=== PATIENT | female | born 1985 | race Caucasian/White ===

== ENCOUNTER 2017-10-01 23:45 | Emergency (ER) | payer BC ==
[2017-10-02] MEDS ORDERED: Acetaminophen/HYDROcodone 325-7.5 MG Tab PO ONE (00:10)
--- NOTE | 2017-10-02 00:16 | EDM.PDOC ---
ED HPI GENERAL MEDICAL PROBLEM - General Chief Complaint: Upper Extremity Injury/Pain Stated Complaint: LEFT HAND SWOLLEN AND PAINFUL Time Seen by Provider: 10/02/17 00:06 - History of Present Illness INITIAL COMMENTS - FREE TEXT/NARRATIVE: HISTORY AND PHYSICAL: History of present illness: The patient is a 32-year-old female who has a history of a bilateral tubal ligation and presents after slipping and falling and trying to grab on and not fall with her left hand and then putting it behind her and impacting her left hand. This event occurred approximately 12 hours ago and the patient tried ice and ibuprofen and is here for persistent pain. The patient is right-hand dominant and complains of pain mostly at the base of the thumb extending into the hand and the remainder of the hand feels tingly but she has been afraid to move it. She has no discrete pain in the other digits and she has no proximal wrist or scaphoid tenderness no proximal forearm elbow or shoulder discomfort. With these events the patient did not hit her head pass out or black out and has no head neck or back pain. Review of systems: As per history of present illness and below otherwise all systems reviewed and negative. Past medical history: As per history of present illness and as reviewed below otherwise noncontributory. Surgical history: As per history of present illness and as reviewed below otherwise noncontributory. Social history: No reported history of drug or alcohol abuse. Family history: As per history of present illness and as reviewed below otherwise noncontributory. Physical exam: General: Well developed well-nourished mildly overweight female who is nontoxic and vital signs are reviewed by me HEENT: Atraumatic, normocephalic, negative for conjunctival pallor or scleral icterus, mucous membranes moist, throat clear, neck supple, nontender, trachea midline. Lungs: Clear to auscultation, breath sounds equal bilaterally, chest nontender. Heart: S1S2, regular rate and rhythm no overt murmurs Abdomen: Soft, nondistended, nontender. NABS Pelvis: Deferred Genitourinary: Deferred. Rectal: Deferred. Extremities: Atraumatic with full range of motion of all extremities with the exception of the left hand. At the opponens area there is diffuse soft tissue swelling tenderness and purplish ecchymosis with a superficial abrasion. The patient has tenderness in the bony architecture of the first metacarpal extending into the thumb but the distal phalanx and nailbed of the thumb are intact and nontender. The remainder of the digits are nontender without defects or deformities or soft tissue injuries as is the remainder of the palmar and dorsal aspect of the hand. The scaphoid is without tenderness and the remainder of the wrist and proximal forearm are also nontender. The left elbow humerus shoulder and clavicle are also nontender and without defects or deformities. Neurovascular in the hand is intact. The legs are, negative for cords or calf pain. Neurovascular unremarkable. Neuro: Awake, alert, oriented. Cranial nerves II through XII unremarkable. Cerebellum unremarkable. Motor and sensory unremarkable throughout. Exam nonfocal. Diagnostics: X-ray left hand Therapeutics: [place] sling, Ortho-Glass splint was applied by nursing to mobilize the fifth metacarpal as well as the base of the thumb Impression: Fall with fracture of proximal fifth metacarpal left and thumb injury/opponens muscle contusion Definitive disposition and diagnosis as appropriate pending reevaluation and review of above. left hand Pain Score (Numeric/FACES): 7 - Related Data Allergies Allergy/AdvReac Type Severity Reaction Status Date / Time No Known Allergies Allergy Verified 10/02/17 00:06 Home Meds: Home Meds . [No Known Home Meds] 10/02/17 [History] Past Medical History - Past Health History Medical/Surgical History: Denies Medical/Surgical History Psychiatric History: Reports: Anxiety Social & Family History - Family History Family Medical History: Noncontributory - Tobacco Use Smoking Status *Q: Current Every Day Smoker Years of Tobacco use: 12 Packs/Tins Daily: 1 - Caffeine Use Caffeine Use: Reports: None - Recreational Drug Use Recreational Drug Use: No Review of Systems - Review of Systems Review Of Systems: ROS reveals no pertinent complaints other than HPI. ED EXAM, GENERAL - Physical Exam Exam: See Below (See dictation) Course - Vital Signs Last Recorded V/S: Last Vital Signs Temp 36.1 C 10/02/17 00:00 Pulse 89 10/02/17 00:00 Resp 18 10/02/17 00:00 BP 148/100 H 10/02/17 00:00 Pulse Ox 99 10/02/17 00:00 - Orders/Labs/Meds Orders: Active Orders 24 hr Category Date Time Status Hand Comp Min 3V Lt [CR] Stat Exams 10/02/17 00:11 Taken DME for Discharge [COMM] Stat Oth 10/02/17 00:51 Ordered Meds: Medications Discontinued Medications Generic Name Dose Route Start Last Admin Trade Name Roberto Carlos PRN Reason Stop Dose Admin Hydrocodone Bitart/Acetaminophen 1 tab 10/02/17 00:10 10/02/17 00:39 [place] 325-7.5 Mg PO 10/02/17 00:11 1 tab ONETIME ONE Administration Departure - Departure Time of Disposition: 00:52 Disposition: Home, Self-Care 01 Condition: Good Clinical Impression: Fracture of metacarpal base of left hand, closed Qualifiers: Encounter type: initial encounter Metacarpal bone: fifth Fracture alignment: nondisplaced Qualified Code(s): S62.347A - Nondisplaced fracture of base of fifth metacarpal bone, left hand, initial encounter for closed fracture Injury of thumb, left Qualifiers: Encounter type: initial encounter Qualified Code(s): S69.92XA - Unspecified injury of left wrist, hand and finger(s), initial encounter - Discharge Information Referrals: Luis Eduardo Hall MD [Primary Care Provider] - Forms: ED Department Discharge Additional Instructions: The following information is given to patients seen in the emergency department who are being discharged to home. This information is to outline your options for follow-up care. We provide all patients seen in our emergency department with a follow-up referral. The need for follow-up, as well as the timing and circumstances, are variable depending upon the specifics of your emergency department visit. If you don't have a primary care physician on staff, we will provide you with a referral. We always advise you to contact your personal physician following an emergency department visit to inform them of the circumstance of the visit and for follow-up with them and/or the need for any referrals to a consulting specialist. The emergency department will also refer you to a specialist when appropriate. This referral assures that you have the opportunity for followup care with a specialist. All of these measure are taken in an effort to provide you with optimal care, which includes your followup. Under all circumstances we always encourage you to contact your private physician who remains a resource for coordinating your care. When calling for followup care, please make the office aware that this follow-up is from your recent emergency room visit. If for any reason you are refused follow-up, please contact the [facility] emergency department at and ask to speak to the emergency department charge nurse. [facility] Specialty clinic-Plastic Surgery and Hand Surgery Professional Building [address] [place] [id number] Ice and elevate the area and continue to use ibuprofen, 600-800 mg every 6-8 hours, along with the pain medication you have been prescribed. You may follow- up with our hand specialist using the resources given to above. Return to ER as needed and as discussed. Please wear splint as shown until you're followed up and loosen and/or remove at sleep times. You have been given [employer] Meds for [place] - My Orders Last 24 Hours: My Active Orders 10/02/17 00:11 Hand Comp Min 3V Lt [CR] Stat 10/02/17 00:51 DME for Discharge [COMM] Stat - Assessment/Plan Last 24 Hours: My Active Orders 10/02/17 00:11 Hand Comp Min 3V Lt [CR] Stat 10/02/17 00:51 DME for Discharge [COMM] Stat
--- NOTE | 2017-10-02 11:46 | CR ---
EXAM DATE: 10/01/17 PATIENT'S AGE: 32 Patient: NISH FALK Facility: [place], [place] Site . Site : 1985 Study: XRay Extremity Left [id number]/27/2018 12:41:01 AM Ordering Physician: Lexis George Final Report: Indication: Injury seen Technique: Three views of the left hand Comparison: None available Findings: Bones: A nondisplaced fracture of the proximal aspect of the 5th metacarpal. No dislocation. Joint spaces: Unremarkable. Soft tissues: Mild dorsal soft tissue swelling. Impression: A proximal 5th metacarpal fracture. Dictated by Tim Austin MD @ 10/02/2017 12:46:16 AM Dictated by: Tim Austin MD @ 10/02/2017 00:46:21 (Electronic Signature) Report Signed by Proxy. NEGAR
== END 2017-10-02 01:05 | disposition home or self-care (01) ==
LOC: MW.ED 23:45
DX: S62.347A Nondisplaced fracture of base of fifth metacarpal bone, left hand, initial encounter for closed fracture (principal); S69.92XA Unspecified injury of left wrist, hand and finger(s), initial encounter; F17.210 Nicotine dependence, cigarettes, uncomplicated; F41.9 Anxiety disorder, unspecified; W01.0XXA Fall on same level from slipping, tripping and stumbling without subsequent striking against object, initial encounter
CPT/HCPCS: 29125; 73130; 99283; A9270